=== PATIENT | female | born 1980 | race Caucasian/White ===

== ENCOUNTER 2018-05-14 20:07 | Emergency (ER) | payer MEDICAID ==
[~2018-05-14] VITALS: Ht 162.6 cm; Wt 48.5 kg
--- NOTE | 2018-05-14 20:57 | NUR ---
PT AMBULATED TO BED 5.
--- NOTE | 2018-05-14 20:58 | NUR ---
PATIENT PRESENTS TO ED WITH c/o of toothache x 1 week. pt states she his having pain to the left side of mouth.; PATIENT STATES PAIN OF 8/10 AT THIS TIME; pt has a dentist opp tomorrow. VSS; PATIENT POSITIONED FOR COMFORT; HOB ELEVATED; BEDRAILS UP X2; BED DOWN. ER MD MADE AWARE OF PT STATUS.
[2018-05-14] MEDS ORDERED: HYDROcodone/APAP 5/325 MG 1 TAB TAB PO ONE (21:05)
--- NOTE | 2018-05-14 21:40 | NUR ---
Patient discharged with v/s stable. Written and verbal after care instructions given and explained. Patient alert, oriented and verbalized understanding of instructions. Ambulatory with steady gait. All questions addressed prior to discharge. ID band removed. Patient advised to follow up with PMD. Rx of amoxicillin and ibuprofen WAS given. Patient educated on indication of medication including possible reaction and side effects. Opportunity to ask questions provided and answered.
== END 2018-05-14 21:40 | disposition home or self-care (01) ==
LOC: MED 20:07
DX: K04.7 Periapical abscess without sinus (principal)
CPT/HCPCS: 99283

== ENCOUNTER 2018-11-18 08:42 | Emergency (ER) | payer MEDICAID ==
[~2018-11-18] VITALS: Ht 162.6 cm; Wt 43.5 kg
[2018-11-18 08:46] VITALS: BP 107/67
--- NOTE | 2018-11-18 08:52 | NUR ---
Patient ambulated to bed 2. RN evaluating patient at bedside.
--- NOTE | 2018-11-18 09:11 | NUR ---
PT PRESENTS TO ED WITH C/O EPIGASTRIC PAIN X1 WEEK. PT REPORTS EPIGASTRIC PAIN WHEN LAYING DOWN AND INTERMITENT BILATERAL FLANK PAIN THAT RADIATES UP TO RIB CAGE. DENIES N/V/D. -FEVER;AFEBRILE AT THIS TIME. VSS. PLACED IN GOWN;ERMD TO EVALUATE PT.
[2018-11-18] MEDS ORDERED: NACL 0.9% 1,000 ML IV ONE (09:16)
[2018-11-18] MEDS ORDERED: NACL 0.9% 1,000 ML IV SCH (09:16)
--- NOTE | 2018-11-18 09:19 | NUR ---
DR BLAIR EVALUATING PT AT BEDSIDE.
[2018-11-18] MEDS ORDERED: KETOROLAC 30 MG/ML VIAL IVP ONE (09:20)
[2018-11-18] MEDS ORDERED: DICYCLOMINE HCL LIQUID 10 MG/5 ML UDC PO ONE (09:20)
[2018-11-18] MEDS ORDERED: MORPHINE SULFATE 2 MG/ML SYR IVP ONE (09:20)
[2018-11-18] MEDS ORDERED: ONDANSETRON 4 MG/2 ML VIAL IVP ONE (09:20)
--- NOTE | 2018-11-18 09:26 | NUR ---
LAB AT BEDSIDE
--- NOTE | 2018-11-18 09:29 | NUR ---
PT TAKEN TO RAD VIA WHEELCHAIR
--- NOTE | 2018-11-18 09:35 | NUR ---
PT BACK FROM RADIOLOGY
--- NOTE | 2018-11-18 09:40 | NUR ---
ULTRASOUND AT BEDSIDE.
[2018-11-18 09:43] LABS: APPEARANCE,URINE SL CLOUDY (CLEAR); BILIRUBIN,URINE 1+ (NEGATIVE); BLOOD, URINE 2+ (NEGATIVE); COLOR,URINE YELLOW (YELLOW); LEUKOCYTE ESTERASE ,URINE NEGATIVE (NEGATIVE); NITRITE, URINE NEGATIVE (NEGATIVE); UGLUCOSE NEGATIVE (NEGATIVE)
[2018-11-18 09:49] LABS: BASOPHILS # (AUTO) 0.1 K/uL (0.00-0.22); BASOPHILS % (AUTO) 2.3 % (0.0-2.0); EOSINOPHILS # (AUTO) 0.4 K/uL (0-0.4); EOSINOPHILS % (AUTO) 11.3 % (0.0-4.0); HEMATOCRIT 31.3 % (36-48); HEMOGLOBIN 9.9 g/dL (12.0-16.0); LYMPHOCYTES # (AUTO) 1.3 K/uL (2.5-16.5); MEAN CORPUSCULAR HEMOGLOBIN 25 pg (27-31); MEAN CORPUSCULAR HGB CONC 32 g/dL (33-37); MEAN CORPUSCULAR VOLUME 78.1 fL (80-94); MONOCYTES # (AUTO) 0.3 K/uL (0.8-1.0); MONOCYTES % (AUTO) 8.6 % (1.7-9.3); NEUTROPHILS # (AUTO) 1.3 K/uL (1.8-7.7); NEUTROPHILS % (AUTO) 38.8 % (42.2-75.2); PLATELET COUNT (AUTO) 373 K/uL (140-450); RED BLOOD CELL COUNT(AUTO) 4.01 MIL/uL (4.20-5.40); WHITE BLOOD COUNT (AUTO) 3.4 K/uL (4.8-10.8)
[2018-11-18 09:51] LABS: BARBITURATE, URINE NEG. ng/ml (NEG <=200); BENZODIAZEPINE, URINE NEG. ng/mL (NEG <=200); CANNABINOID, URINE NEG. ng/mL (NEG <=50); COCAINE, URINE NEG. ng/mL (NEG <=300); OPIATE, URINE NEG. ng/mL (NEG <=2000); PHENCYCLIDINE SCREEN,URINE NEG. ng/mL (NEG <=25)
[2018-11-18 09:55] LABS: WBC,URINE 0-5 /HPF (0-5)
[2018-11-18 09:57] LABS: ANION GAP 12.1 (8-16); CARBON DIOXIDE 26.3 mmol/L (21-32); CREATININE 0.8 mg/dL (0.6-1.3); POTASSIUM 4.4 mmol/L (3.5-5.1)
--- NOTE | 2018-11-18 10:01 | NUR ---
Patient does not wish to proceed with Medications recommended by Dr Bowie; zofran, morphine and toradol. Patient verbalizes understanding of risks involved from refusing medication. Dr. Bowie informed; all other meds administered as ordered.
[2018-11-18 10:03] LABS: ALBUMIN 3.6 g/dL (3.4-5.0); TOTAL BILIRUBIN 0.3 mg/dL (0.0-1.0)
[2018-11-18] MEDS ORDERED: LACTULOSE 20 GM/30 ML UDC PO ONE (11:45)
[2018-11-18 13:03] VITALS: BP 118/64
--- NOTE | 2018-11-18 13:04 | NUR ---
Patient discharged with v/s stable. Written and verbal after care instructions given and explained. Patient verbalized understanding. Ambulatory with steady gait. All questions addressed prior to discharge. Advised to follow up with PMD.
== END 2018-11-18 13:00 | disposition home or self-care (01) ==
LOC: MED 08:42
DX: R10.30 Lower abdominal pain, unspecified (principal); M54.5 Low back pain; D64.9 Anemia, unspecified
CPT/HCPCS: 36415; 74176; 76705; 80053; 80305; 81001; 81025; 82150; 83690; 85025; 96374; 96375; 99284; J7030; Q0092; J1885; J2270; J2405